=== PATIENT | male | born 2000 | race African-American/Black ===

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

== ENCOUNTER 2022-06-03 16:54 | Emergency (ER) | payer SELFPAY ==
[~2022-06-03] VITALS: Ht 177 cm; Wt 88.0 kg
[2022-06-03 17:00] VITALS: BP 149/68
[2022-06-03] MEDS ORDERED: RT-ALBUTEROL SULF 2.5 MG/3 ML PRE-MIX VIAL ONE (17:05)
--- NOTE | 2022-06-03 17:06 | ED Cough/URI ---
General Chief Complaint: Respiratory Problems Stated Complaint: ASTHMA Nursing Triage Note: ARRIVED VIA AMB TO ROOM 06 WITH COMPLAINTS OF WHEEZING STARTING YESTERDAY. STATES ALBUTEROL IS NOT HELPING. Source: patient Exam Limitations: no limitations (VASU RICH) History of Present Illness Date Seen by Provider: Jun 03, 2022 Time Seen by Provider: 17:06 Initial Comments Patient is a 22-year-old male who presents the ED for shortness of breath, chest pain and wheezing. Symptoms started yesterday. Report acute onset. States he has been using his albuterol nebulizer machine at home without much improvement. History of asthma. States he was hospitalized as a kid due to asthma. States typically steroids help with his asthma attacks. Patient denies of any fever, sore throat, ear pain, vomiting, diarrhea, headache, dizziness. Nasal congestion started today. he reports some mild chest tightness with his shortness of breath and wheezing. Patient also reports a mild dry cough. Patient with a history of smoking (VASU RICH) Allergies and Home Medications Allergies Coded Allergies: No Known Drug Allergies (Unverified , 09/20/20) Patient Home Medication List Home Medication List Reviewed: Yes (VASU RICH) Prednisone (Prednisone) 50 Mg Tab, 50 MG PO DAILY Prescribed by: MERLYN MILLER on 06/03/22 0546 Review of Systems Review of Systems Constitutional: No chills, No diaphoresis, No fever, No malaise EENTM: No blurred vision, No double vision, No hoarseness, No mouth pain, No mouth swelling, No nose pain, No throat pain, No throat swelling Respiratory: No cough; short of breath, wheezing Cardiovascular: chest pain Gastrointestinal: No abdominal pain, No diarrhea, No nausea, No vomiting Genitourinary: No decreased output, No discharge Musculoskeletal: No back pain Skin: No change in color (VASU RICH) All Other Systems Reviewed Negative Unless Noted: Yes (VASU RICH) Past Pykpjsx-Icjapb-Ymsvwt Hx Patient Social History Tobacco Use?: No Substance use?: Yes Substance type: Marijuana Alcohol Use?: Yes Alcohol Frequency: Once in a while (VASU RICH) Physical Exam Vital Signs - First Documented 06/03/22 17:00 Temp 36.3 Pulse 71 Resp 16 B/P (MAP) 149/68 (95) Pulse Ox 97 O2 Delivery Room Air (AZAEL NEVAREZ MD) Capillary Refill : Less Than 3 Seconds (VASU RICH) Height: '" Weight: lbs. oz. kg; 28.00 BMI Method: General Appearance: WD/WN, no apparent distress Eyes: Bilateral Eye Normal Inspection, Bilateral Eye PERRL, Bilateral Eye EOMI HEENT: PERRL/EOMI, normal ENT inspection, TMs normal, pharynx normal Neck: non-tender, full range of motion, supple Respiratory: chest non-tender, decreased breath sounds, wheezing Cardiovascular: regular rate, rhythm, no edema, no gallop, no JVD Gastrointestinal: normal bowel sounds, non tender, soft, no organomegaly Extremities: normal range of motion, non-tender, normal inspection, no pedal edema Neurologic/Psychiatric: microfilm mounter II-XII nml as tested, no motor/sensory deficits, alert, normal mood/affect, oriented x 3 Skin: normal color (VASU RICH) Progress/Results/Core Measures Suspected Sepsis SIRS Temperature: Pulse: 71 Respiratory Rate: 16 Blood Pressure 149 /68 Mean: 95 (VASU RICH) Results/Orders Medications Given in ED Current Medications Medications Dose Ordered Sig/Carlos Enrique Route Start Time Stop Time Status Last Admin Dose Admin Albuterol Sulfate 2.5 mg ONCE ONCE INH 06/03/22 17:15 06/03/22 17:16 DC 06/03/22 17:08 2.5 MG Albuterol Sulfate 2.5 mg ONCE ONCE INH 06/03/22 17:15 06/03/22 17:16 DC 06/03/22 17:08 2.5 MG Prednisone 50 mg ONCE ONCE PO 06/03/22 17:15 06/03/22 17:16 DC 06/03/22 17:23 50 MG (AZAEL NEVAREZ MD) Vital Signs/I&O 06/03/22 06/03/22 06/03/22 17:00 17:08 18:00 Temp 36.3 Pulse 71 81 Resp 16 16 B/P (MAP) 149/68 (95) Pulse Ox 97 98 98 O2 Delivery Room Air Room Air Room Air (AZAEL NEVAREZ MD) Vital Signs/I&O Capillary Refill : Less Than 3 Seconds (VASU RICH) Blood Pressure Mean: 95 Departure Communication (PCP) Patient presents to ED with shortness of breath and wheezing. He states this started yesterday evening. Reviewed previous ER visits, H&P, lab testing. D ifferential diagnosis asthma exacerbation, allergies, viral syndrome. Patient with wheezing throughout. He was not hypoxic or tachycardic. No retractions. Has been using his albuterol nebulizer treatment at home without much improvement. Patient received 2 albuterol nebulizer treatment here with improvement. Patient was given oral prednisone 50 mg. Significant improvement of the wheezing. Talking complete sentences. No retractions. Suspect asthma exacerbation. Does report some nasal congestion. Discussed taking his allergy medication at home which she does have. States he is on Zyrtec. Short burst steroids for the next 4 days. Continue with your nebulizer treatment. If any worsening symptoms such as chest pain, shortness of breath or cough to return back to ED. (VASU RICH) Impression Primary Impression: Asthma exacerbation Disposition: HOME, SELF-CARE Condition: Stable Departure-Patient Inst. Decision time for Depature: 17:54 (VASU RICH) Referrals: [facility],LOCAL PHYSICIAN (PCP) Primary Care Physician Patient Instructions: Asthma in Adults Scripts Prednisone (Prednisone) 50 Mg Tab 50 MG PO DAILY for 4 Days, #4 TAB Prov: VASU RICH 06/03/22 ATTENDING PHYSICIAN NOTE: I was physically present as attending physician in the emergency department during the care of this patient, but I was not directly involved in the decision making or delivery of care for this patient. (AZAEL NEVAREZ MD) VASU RICH Jun 03, 2022 17:06 AZAEL NEVAREZ MD Jun 03, 2022 21:44
[2022-06-03] MEDS ORDERED: predniSONE 20 MG TAB PO ONE (17:15)
[2022-06-03] MEDS ORDERED: RT-ALBUTEROL SULF 2.5 MG/3 ML PRE-MIX VIAL INH ONE ×2 (17:15)
[2022-06-03] MEDS ORDERED: PRD50T PO (17:55)
== END 2022-06-03 18:00 | disposition home or self-care (01) ==
LOC: EDUNIT# 16:54 → ER 16:57
DX: J45.901 Unspecified asthma with (acute) exacerbation (principal); Z87.891 Personal history of nicotine dependence; Z79.899 Other long term (current) drug therapy; Z28.310 Unvaccinated for COVID-19
CPT/HCPCS: 94640; 99283

== ENCOUNTER 2022-11-26 09:15 | Emergency (ER) | payer SELFPAY ==
[~2022-11-26] VITALS: Ht 177 cm; Wt 92.0 kg
[~2022-11-26 09:15] MED LIST: PRD50T PO
[2022-11-26] MEDS ORDERED: RT-Ipratropium/Albuterol NEB 3 ML VIAL INH ONE (10:30)
--- NOTE | 2022-11-26 10:37 | ED Respiratory ---
General Chief Complaint: Respiratory Problems Stated Complaint: SOA - COUGH - CONGESTION - SORE THROAT Nursing Triage Note: ARRIVED VIA AMB TO ROOM 09. STATES HE HAS A HX OF ASTHMA AND STARTED HAVING DIFFICULTY BREATHING AND ASTHMA SX DURING HIS FOOTBALL GAME YESTERDAY. HAS TRIED HIS ALBUTEROL INHALER WHICH IS NOT HELPING. Source: patient Exam Limitations: no limitations (HIPOLITO ABAD) History of Present Illness Date Seen by Provider: Nov 26, 2022 Time Seen by Provider: 10:32 Initial Comments Patient presents today with symptoms of asthma since November 24. He has a long history of asthma but says that he ran out of his breathing treatments and was waiting for his mom to mail more up from [place]. He has been using his albuterol inhaler and says it has a little bit of effect but doesnt ta ke away his shortness of breath. He says that his lungs feel like but he is not currently having an asthma attack. He has an associated cough as well. He denies nausea, vomiting, headache or chest pain. Timing/Duration: yesterday Severity: mild Prior Episodes/Possible Cause: chronic episodes Modifying Factors: Improves With Activity, Improves With Albuterol Inhaler Associated Symptoms: No chest pain/soreness; cough; No dizziness, No fever/chills, No headache, No lightheadedness; shortness of breath (HIPOLITO ABAD) Initial Comments Patient describes chronic problems with allergies and asthma. He takes antihistamines and nasal sprays. He normally uses nebulizer treatments but is out of solution. His mother is sending him some solution but that may be days before he receives it. He does sometimes require steroid therapy for asthma exacerbations. He was taken out of his football game this weekend and not able to continue playing due to asthma symptoms. (AZAEL NEVAREZ MD) Allergies and Home Medications Allergies Coded Allergies: No Known Drug Allergies (Unverified , 09/20/20) Patient Home Medication List Home Medication List Reviewed: Yes (HIPOLITO ABAD) Albuterol Sulfate (Albuterol Sulfate) 2.5 Mg/3 Ml (0.083 %) Vial.neb, 2.5 MG INH Q4H PRN for WHEEZING Prescribed by: AZAEL SANTOS on 11/26/22 1121 Prednisone (Prednisone) 50 Mg Tab, 50 MG PO DAILY Prescribed by: MERLYN MILLER on 06/03/22 1755 Prednisone (Prednisone) 20 Mg Tab, 40 MG PO DAILY Prescribed by: AZAEL SANTOS on 11/26/22 1121 Review of Systems Review of Systems Constitutional: No chills, No diaphoresis, No dizziness, No fever EENTM: no symptoms reported; No hoarseness, No nose congestion, No throat pain, No throat swelling Respiratory: cough, dyspnea on exertion, short of breath Cardiovascular: No chest pain, No palpitations, No syncope Gastrointestinal: No abdominal pain, No constipation, No diarrhea Musculoskeletal: no symptoms reported Skin: no symptoms reported (HIPOLITO ABAD) Past Hloactt-Yhdnml-Pboxxa Hx Patient Social History Tobacco Use?: No Substance use?: No Alcohol Use?: Yes Alcohol Frequency: Once in a while (HIPOLITO ABAD) Past Medical History Surgeries: No Respiratory: Yes Asthma Cardiac: No Neurological: No Genitourinary: No Gastrointestinal: No Musculoskeletal: No Endocrine: No HEENT: No Cancer: No Psychosocial: No Integumentary: No (HIPOLITO ABAD) Physical Exam Vital Signs - First Documented 11/26/22 09:30 Temp 36.4 Pulse 55 Resp 16 B/P (MAP) 143/96 (112) Pulse Ox 97 O2 Delivery Room Air (AZAEL NEVAREZ MD) Capillary Refill : Less Than 3 Seconds (HIPOLITO ABAD) Height: '" Weight: lbs. oz. kg; 29.00 BMI Method: General Appearance: WD/WN, no apparent distress HEENT: TMs normal; No pharyngeal erythema Respiratory: chest non-tender, decreased breath sounds, expiration (tightness), inspiration (tightness) Cardiovascular: regular rate, rhythm, no gallop, no murmur Gastrointestinal: normal bowel sounds, non tender, soft Neurologic/Psychiatric: alert, normal mood/affect, oriented x 3 (HIPOLITO ABAD) Progress/Results/Core Measures Suspected Sepsis SIRS Temperature: Pulse: 55 Respiratory Rate: 16 Blood Pressure 143 /96 Mean: 112 (HIPOLITO ABAD) Results/Orders Lab Results Laboratory Tests Test 11/26/22 09:40 Range/Units Influenza Type A (RT-PCR) Not Detected Not Detecte Influenza Type B (RT-PCR) Not Detected Not Detecte SARS-CoV-2 RNA (RT-PCR) Not Detected Not Detecte Group A Streptococcus Screen Not Detected NotDetected (AZAEL NEVAREZ MD) My Orders Orders - AZAEL NEVAREZ MD Covid 19 Inhouse Test (11/26/22 09:20) Influenza A And B By Pcr (11/26/22 09:20) Rapid Strep A Screen (11/26/22 09:20) Ipratropium/Albuterol Inh Soln (Ipratrop (11/26/22 10:30) Svn Small Volume Nebulizer (11/26/22 10:28) (AZAEL NEVAREZ MD) Medications Given in ED (AZAEL NEVAREZ MD) Vital Signs/I&O 11/26/22 11/26/22 11/26/22 09:30 10:41 11:29 Temp 36.4 Pulse 55 76 Resp 16 16 B/P (MAP) 143/96 (112) 139/81 Pulse Ox 97 97 O2 Delivery Room Air Room Air Room Air (AZAEL NEVAREZ MD) Vital Signs/I&O Capillary Refill : Less Than 3 Seconds (HIPOLITO ABAD) Blood Pressure Mean: 112 Progress Note : Time: 10:38 Progress Note 10:38 - Patient is seen this morning with a 3 day history of shortness of breath. He says that he ran out of his breathing treatments and is waiting for his mom to send him more from [place]. He believes that his treatments should come in tomorrow in the mail. His lungs are tight upon ascultation, he says he is somewhat short of breath currently but it gets much worse with any exertion. He had tried to use his inhaler yesterday but provided minimal relief. His cardiovascular exam is unremarkable. His COVID and Flu swabs are negative. Plan is to give him breathing treatments here and see if it helps symptoms. (HIPOLITO ABAD) Progress Note : Progress Note Patient was interviewed and examined by me personally along with PA student. DuoNeb treatment was provided. This resolved his wheezing. On repeat examination he had slightly prolonged expiratory phase. Prescriptions were provided. See discharge instructions for further discussion. Influenza and COVID-19 swabs were negative. (AZAEL NEVAREZ MD) Departure Impression Primary Impression: Asthma exacerbation Qualified Codes: J45.901 - Unspecified asthma with (acute) exacerbation Additional Impression: Seasonal allergies Disposition: 01 HOME, SELF-CARE Condition: Improved Departure-Patient Inst. Decision time for Depature: 11:16 (AZAEL NEVAREZ MD) Referrals: NO,LOCAL PHYSICIAN (PCP/Family) Primary Care Physician Patient Instructions: Asthma, Adult ED, How to Use a Metered Dose Inhaler ED Add. Discharge Instructions: Continue using your allergy medication and nasal spray as previously directed. Use your albuterol rescue inhaler when you are away from home. Use the nebulizer machine when you are at home. During exacerbations, you may use the nebulizer machine every 4 hours on a scheduled basis. Otherwise, use as needed for shortness of breath and wheezing. Follow-up with a primary care provider or the [facility] [place] [facility] to review your asthma treatment plan. You may need additional maintenance inhaled medications to prevent further exacerbations. Avoid inhaled irritants such as smoke, dust, fumes, etc. Return to care if you are having worsening symptoms despite following these instructions. Also return to care if you are requiring more than 1 nebulizer treatment every 4 hours or more than 4 puffs off your albuterol inhaler in a 4- hour period of time. If you are not achieving satisfactory control with your inhaled medications, start the prednisone as prescribed. Take prednisone with food or milk to avoid stomach upset. Avoid taking close to bedtime as it may cause sleep disturbance. All discharge instructions reviewed with patient and/or family. Voiced understan sammy. Scripts Prednisone (Prednisone) 20 Mg Tab 40 MG PO DAILY, #8 TAB 0 Refills Prov: AZAEL NEVAREZ MD 11/26/22 Albuterol Sulfate (Albuterol Sulfate) 2.5 Mg/3 Ml (0.083 %) Vial.neb 2.5 MG INH Q4H PRN for WHEEZING, #50 EA 1 Refill Prov: AZAEL NEVAREZ MD 11/26/22 Medical Student Attestation and Attending Note: I have personally interviewed and examined this patient along with NELLY Pimentel. I have reviewed student documentation including history, physical, and assessments. I agree with the documentation except where otherwise noted. Exam: General: Alert, oriented, no acute distress, well developed HEENT: Normocephalic and atraumatic Heart: Regular rate and rhythm without murmur Lungs: Tight wheezing throughout. No crackles. Neuropsych: Alert, oriented, no focal deficits Skin: Warm and dry without rashes (AZAEL NEVAREZ MD) HIPOLITO ABAD Nov 26, 2022 10:36 AZAEL NEVAREZ MD Nov 26, 2022 11:21
[2022-11-26] MEDS ORDERED: ALBU2.5V4 INH (11:21)
[2022-11-26] MEDS ORDERED: PRD20T PO (11:21)
[2022-11-26 11:29] VITALS: BP 139/81
== END 2022-11-26 11:29 | disposition home or self-care (01) ==
LOC: EDUNIT# 09:15 → ER 09:17
DX: J45.901 Unspecified asthma with (acute) exacerbation (principal); J30.2 Other seasonal allergic rhinitis; Z79.899 Other long term (current) drug therapy; Z20.822 Contact with and (suspected) exposure to COVID-19
CPT/HCPCS: 87430; 87636; 94640; 99283